=== PATIENT | male | born 1960 | race Caucasian/White ===

== ENCOUNTER 2019-05-12 13:05 | Inpatient (IN) | payer MEDICAID ==
[~2019-05-12] VITALS: Ht 177.8 cm; Wt 68.0 kg
[2019-05-12] MEDS ORDERED: SODIUM CHLORIDE 0.9% 1,000 ML IV ONE (13:35)
[2019-05-12 13:43] LABS: Basophils # (auto) 0 uL; Basophils % (auto) 0.9 % (0.0-2.0); Eosinophils # (auto) 0 uL; Eosinophils % (auto) 0.6 % (0.0-7.0); Hematocrit 33.9 % (41.0-53.0); Hemoglobin 11.4 g/dL (13.5-17.5); Lymphocytes # (auto) 1.1 uL; Lymphocytes % (auto) 21.4 % (10.0-50.0); Mean Corpuscular Hemoglobin 30.5 pg (28.0-32.0); Mean Corpuscular Hgb Conc. 33.6 g/dL (32.0-36.0); Mean Corpuscular Volume 90.8 fL (80.0-100.0); Monocytes # (auto) 0.5 uL; Monocytes % (auto) 9.7 % (0.0-12.0); Neutrophils # (auto) 3.4 uL; Neutrophils % (auto) 67.4 % (37.0-80.0); Nucleated Red Blood Cells % 0.1 %; Platelet Count (auto) 250 10^3/uL (140-450); Red Blood Cells 3.73 10^6/uL (4.5-5.90); Red Cell Distribution Width 13.7 % (11.8-14.3)
[2019-05-12] MEDS ORDERED: ONDANSETRON HCL 4 MG/2 ML VIAL IV ONE (13:45)
[2019-05-12 14:02] LABS: Albumin 3.3 g/dL (3.4-5.0); Anion Gap 7 (5-15); Blood Urea Nitrogen 20 mg/dL (7-18); Calcium 8.5 mg/dL (8.5-10.1); Carbon Dioxide 24 mmol/L (21-32); Chloride 114 mmol/L (98-107); Glucose 89 mg/dL (74-106); Magnesium 2.2 mg/dL (1.6-2.6); Potassium 3.6 mmol/L (3.5-5.1); Sodium 145 mmol/L (136-145)
[2019-05-12 14:18] LABS: Alanine Aminotransferase 34 U/L (16-61); Alkaline Phosphatase 58 U/L (45-117); Aspartate Aminotransferase 17 U/L (15-37); BUN/Creatinine Ratio 14.1; Bilirubin, Total 0.7 mg/dL (0.2-1.0); GFR African American 66 mL/min; GFR Non-African American 55 mL/min; Total Protein 6.5 g/dL (6.4-8.2)
[2019-05-12] MEDS ORDERED: DOCUSATE SOD 100 MG CAP PO PRN (16:30)
[2019-05-12] MEDS ORDERED: LORazepam 2MG/ML-1ML VIAL IV PRN (16:30)
[2019-05-12] MEDS ORDERED: NITROGLYCERIN 0.4 MG SL TAB SL PRN (16:30)
[2019-05-12] MEDS ORDERED: HYDROcodone-ACET 5/325MG TAB PO PRN (16:30)
[2019-05-12] MEDS ORDERED: MORPHINE SULF INJ 2 MG/ML SYRINGE 1ML IV PRN ×2 (16:30)
[2019-05-12] MEDS ORDERED: ACETAMINOPHEN 500 MG TAB PO PRN (16:30)
[2019-05-12] MEDS ORDERED: ONDANSETRON HCL 4 MG/2 ML VIAL IV PRN (16:30)
[2019-05-12] MEDS: SOD CHL 0.45% 1,000 ML IV SCH (16:42)
--- NOTE | 2019-05-12 17:30 | NUR ---
Telemetry admit from ER TIM LARA admitted to Telemetry unit after SBAR received. Patient oriented to TYLER COTTO, primary RN, unit, room, bed, and unit policies regarding patient care and visiting hours. Patient now on continuous telemetry monitoring, tele box # 31 and telemetry reading on arrival to unit is . Patient placed on bedside oxygen, weighed by bed scale and encouraged to call if they need something. All questions and concerns addressed, patient verbalized understanding.
--- NOTE | 2019-05-12 18:02 | NUR ---
Respiratory rate 40 beats per mins, hospitalist paged , awaiting to call back.
--- NOTE | 2019-05-12 18:05 | NUR ---
Received a call from Rocky MORALES with new orders, noted and carried out.
[2019-05-12 18:08] VITALS: BP 138/81
--- NOTE | 2019-05-12 19:37 | NUR ---
ANDREW OROURKE MADE AWARE OF ABG RESULTS PATIENT CURRENTLY SLEEPING, RR 28 AT THIS TIME. HOSPITALIST MADE AWARE OF STATUS NO NEW ORDERS AT THIS TIME
--- NOTE | 2019-05-12 20:00 | NUR ---
PATIENT MORE CALM NOW RR AT 18/MIN PATIENT SLEEPING WITH NO S/S OF DISTRESS
[2019-05-12 20:38] LABS: INR 1.05 (0.9-1.15); Partial Thromboplastin Time 26.2 sec (23.64-32.05)
[2019-05-12 22:00] VITALS: BP 137/86
[2019-05-12] MEDS: METOPROLOL TARTRATE 25 MG TAB PO SCH (22:19)
[2019-05-12] MEDS: ATORVASTATIN 20 MG TAB PO SCH (22:19)
[2019-05-13] MEDS: SOD CHL 0.45% 1,000 ML IV SCH ×3 (02:25→22:17)
--- NOTE | 2019-05-13 05:07 | NUR ---
URINE SAMPLE OBTAINED AND SENT TO LAB
[2019-05-13 05:17] LABS: Urine WBC None Seen /hpf (0 - 3)
[2019-05-13 05:32] LABS: Urine Bacteria NONE SEEN /hpf (None Seen); Urine Blood Negative /uL (Negative); Urine Specific Gravity 1.021 (1.001-1.035)
[2019-05-13 05:43] LABS: Alcohol, Urine < 3.0 mg/dL (0-5); Amphetamine Screen, Urine POSITIVE (NEGATIVE); Barbiturate Scree,Urine NEGATIVE (NEGATIVE); Benzodiazephine Screen, Urine NEGATIVE (NEGATIVE); Cannabinoid Screen, Urine NEGATIVE (NEGATIVE); Cocaine Screen, Urine NEGATIVE (NEGATIVE); Opiate Scree,Urine NEGATIVE (NEGATIVE); Phencyclidine Screen, Urine NEGATIVE (NEGATIVE)
[2019-05-13 06:03] VITALS: BP 129/82
--- NOTE | 2019-05-13 06:52 | NUR ---
CLOSING PATIENT IS SLEEPING. NO S/S OF DISTRESS NOTED CALL LIGHT WITHIN REACH WILL ENDORSE CARE TO AM SHIFT RN
--- NOTE | 2019-05-13 07:20 | NUR ---
OPENING NOTE ASSUMED CARE OF PT. ALERT AND ORIENTED. NO SIGNS OF SOB/DISTRESS NOTED. BED SET TO LOWEST POSITION/LOCKED. BEDSIDE RAILS UP X2. CALL LIGHT WITHIN REACH. INSTRUCTED PT TO CALL FOR ASSISTANCE. DISCUSSED POC. WILL CONTINUE TO MONITOR Q1HR AND PRN.
[2019-05-13 08:00] VITALS: BP 124/85
[2019-05-13] MEDS: METOPROLOL TARTRATE 25 MG TAB PO SCH ×2 (10:00→21:56)
[2019-05-13] MEDS: ASPirin 81 mg TAB PO SCH (10:09)
[2019-05-13] MEDS: CLOPIDOGREL BISULFATE 75 MG TAB PO SCH (10:10)
[2019-05-13] MEDS: FAMOTIDINE 20 MG TAB PO SCH (10:10)
[2019-05-13 10:59] LABS: Basophils # (auto) 0 uL; Basophils % (auto) 0.5 % (0.0-2.0); Eosinophils # (auto) 0.2 uL; Eosinophils % (auto) 4.1 % (0.0-7.0); Hematocrit 32.5 % (41.0-53.0); Hemoglobin 10.9 g/dL (13.5-17.5); Lymphocytes # (auto) 1.3 uL; Lymphocytes % (auto) 29.9 % (10.0-50.0); Mean Corpuscular Hemoglobin 30.8 pg (28.0-32.0); Mean Corpuscular Hgb Conc. 33.6 g/dL (32.0-36.0); Mean Corpuscular Volume 91.4 fL (80.0-100.0); Monocytes # (auto) 0.4 uL; Monocytes % (auto) 8.7 % (0.0-12.0); Neutrophils # (auto) 2.5 uL; Neutrophils % (auto) 56.8 % (37.0-80.0); Platelet Count (auto) 212 10^3/uL (140-450); Red Blood Cells 3.56 10^6/uL (4.5-5.90); Red Cell Distribution Width 13.8 % (11.8-14.3); White Blood Cell 4.5 10^3/uL (4.4-10.8)
[2019-05-13 11:12] LABS: BUN/Creatinine Ratio 14.7; Calcium 7.7 mg/dL (8.5-10.1); Potassium 3.6 mmol/L (3.5-5.1)
[2019-05-13 12:00] VITALS: BP 113/70
[2019-05-13 16:00] VITALS: BP 113/69
--- NOTE | 2019-05-13 19:00 | NUR ---
Opening Shift Note Assumed care of patient, awake and alert. No S/S of distress/SOB or pain. Instructed on POC and to call for assist PRN, will continue to monitor for changes Q1hr and PRN.
--- NOTE | 2019-05-13 19:23 | NUR ---
ENDORSED CARE TO CAROLYNN OLSON.
[2019-05-13] MEDS: ATORVASTATIN 20 MG TAB PO SCH (21:56)
[2019-05-14 05:49] VITALS: BP 127/81
[2019-05-14 06:05] LABS: Albumin 2.7 g/dL (3.4-5.0); BUN/Creatinine Ratio 18.4; Calcium 7.7 mg/dL (8.5-10.1); Potassium 3.8 mmol/L (3.5-5.1)
[2019-05-14 06:07] LABS: Bilirubin, Total 0.3 mg/dL (0.2-1.0); Total Protein 5.4 g/dL (6.4-8.2)
[2019-05-14] MEDS: SOD CHL 0.45% 1,000 ML IV SCH (08:11)
[2019-05-14 09:00] VITALS: BP 140/90
[2019-05-14] MEDS: CLOPIDOGREL BISULFATE 75 MG TAB PO SCH (09:22)
[2019-05-14] MEDS: ASPirin 81 mg TAB PO SCH (09:22)
[2019-05-14] MEDS: FAMOTIDINE 20 MG TAB PO SCH (09:22)
[2019-05-14] MEDS: METOPROLOL TARTRATE 25 MG TAB PO SCH (09:23)
[2019-05-14 10:33] VITALS: BP 140/90
--- NOTE | 2019-05-14 11:18 | NUR ---
Discharge instructions and paperwork given as MD ordered. Patient is to follow-up with Dr. Mchugh on 05/20/19 at 4:50PM. [id number] [address] [place], [place]. . All questions and concerns addressed. Patient verbalized understanding. IV removed with catheter intact, pressure dressing applied. Telemetry unit returned to ICU.
--- NOTE | 2019-05-14 12:48 | NUR ---
Patient taken to vehicle via wheelchair with all personal belongings, accompanied by staff and family member. No distress noted at time of departure.
== END 2019-05-14 12:48 | disposition home or self-care (01) | DRG 422 ==
LOC: ER 13:05 → EDBD 13:05 → TELE 13:06 → TELE-WESTW 17:28
PROVIDERS: ADMIT Nurse Practitioner Acute Care; ATTEND Internal Medicine
DX: E86.0 Dehydration (principal); N17.0 Acute kidney failure with tubular necrosis; E44.0 Moderate protein-calorie malnutrition; D64.9 Anemia, unspecified; R55 Syncope and collapse; E78.5 Hyperlipidemia, unspecified; F15.90 Other stimulant use, unspecified, uncomplicated; I10 Essential (primary) hypertension; I25.10 Atherosclerotic heart disease of native coronary artery without angina pectoris; Z95.5 Presence of coronary angioplasty implant and graft; Z82.49 Family history of ischemic heart disease and other diseases of the circulatory system; Z79.899 Other long term (current) drug therapy; Z68.21 Body mass index [BMI] 21.0-21.9, adult
CPT/HCPCS: 36415; 36600; 70450; 80048; 80053; 80307; 81001; 82010; 82805; 83735; 84484; 85025; 85379; 85610; 85730; 87081; 93005; 93886; 94761; 96361; 96374; G0378; J2405